=== PATIENT | female | born 1985 | race Caucasian/White ===

== ENCOUNTER 2021-12-09 11:11 | Emergency (ER) | payer SELFPAY ==
[2021-12-09 11:36] VITALS: BP 121/87; PULSE 87; RESP 16; TEMP 36.5; O2SAT 96; BMI 32.1
[2021-12-09 12:04] VITALS: BP 119/73; PULSE 85; RESP 14; O2SAT 98
--- NOTE | 2021-12-09 12:07 | ED_ITS ---
HPI - Nausea/Vomiting/Diarrhea General: Chief complaint: Nausea/Vomiting/Diarrhea Stated complaint: Nauseous Time Seen by Provider: 12/09/21 11:51 Source: patient Mode of arrival: ambulatory Limitations: no limitations History of Present Illness: 36-year-old female patient presents with complaint of nausea. History of throbbing pain in the flank bilaterally. She denies any fever sweats chills denies any shortness of breath or cough. No dysuria urgency or frequency no vomiting or diarrhea. But has been significantly nauseous. MD elicited complaint: nausea and vomiting Onset (ago): hour(s) Description of vomiting: food contents and watery Associated nausea: Yes Associated abdominal pain: Yes Location of pain: Diffuse Severity: mild Quality: cramping Exacerbating factors: eating Relieving factors: none Associated symtoms: Reports anorexia and nausea; Denies bloating, chest pain, cough, diaphoresis, decreased urine output, dizziness, dysuria, fatigue, fecal incontinence, fevers/chills, headache(s), malaise, myalgias, numbness, palpitations, rash, short of breath, syncope, tenesmus, tinnitus or weakness Review of Systems Const: Reports: change in appetite; Denies: fever(s), chills, body aches, fatigue, malaise or diaphoresis ENMT: Denies: tinnitus Card: Denies: chest pain, palpitations or syncope Resp: Denies: dyspnea, productive cough or non-productive cough GI: Reports: nausea; Denies: bloating or fecal incontinence : Denies: dysuria Skin/Breast: Denies: rash or pruritus Neuro: Denies: headache(s) or dizziness FOR[facility]LY [facility], [facility] ED PFSH: Medical History No significant medical problems Surgical History H/O: hysterectomy Physical Exam Const: GENERAL APPEARANCE: cooperative and comfortable ORIENTATION/CONSCIOUSNESS: Yes awake, Yes oriented to person, Yes oriented to place and Yes oriented to time HENMT: COMMON NORMALS: normocephalic, atraumatic and hearing grossly normal bilaterally HEAD & SCALP: normocephalic and atraumatic Neck/C-Spine: COMMON NORMALS: no JVD Resp: COMMON NORMALS: normal respiratory effort, No retractions, No use of accessory muscles and clear to auscultation bilaterally AUSCULTATION: clear to auscultation bilaterally Cardio: COMMON NORMALS: no JVD, regular rate, regular rhythm and No murmurs present (Cardio) RATE: regular rate RHYTHM: regular rhythm GI: COMMON NORMALS: Soft to palpation and No hepatosplenomegaly present AUSCULTATION: Yes normoactive bowel sounds PALPATION: Yes Soft to palpation, No Tenderness to palpation present (GI), No Guarding due to palpation present (GI) and Yes No hepatosplenomegaly present Extremity: COMMON NORMALS: normal to inspection, capillary refill normal, no clubbing, cyanosis or edema, no calf tenderness and no pedal edema Neuro: SENSORIUM/ORIENTATION: Yes oriented to person, Yes oriented to place a nd Yes oriented to time Skin: COMMON NORMALS: no rashes or lesions noted GENERAL SKIN EXAM: no rashes or lesions noted Course Vital Signs: Vital signs: Vital Signs Temperature 97.7 F 12/09/21 11:36 Pulse Rate 88 12/09/21 14:23 Respiratory Rate 16 12/09/21 14:23 Blood Pressure 119/73 12/09/21 12:04 Pulse Oximetry 98 12/09/21 14:23 MDM - Nausea/Vomiting/Diarrhea Medical Decision Making Gastroenteritis elevated LFTs. Will discharge patient home encourage follow-up with primary care fizzing worsening change symptoms return. Clear liquid diet 24 to 48 hours nausea medications as needed. Should have follow-up with primary care to recheck liver functions. Medical Records I reviewed the patient's medical records. Lab Data I reviewed the patient's lab results. : 12/09/21 12:27 12/09/21 12:55 Radiology Impressions Gallbladder Ultrasound 12/09/21 13:29 IMPRESSION: 1. Fatty infiltration of the liver. 2. Cholelithiasis and echogenic bile in the gallbladder. Laboratory Results WBC 9.3 10^3/uL (4.0-10.0) 12/09/21 12:27 RBC 4.89 10^6/uL (4.1-5.3) 12/09/21 12:27 Hgb 14.9 g/dL (11.5-15.3) 12/09/21 12:27 Hct 47.5 % (37.0-47.0) H 12/09/21 12:27 MCV 97.1 fl (81-99) 12/09/21 12:27 MCH 30.5 pg (28.0-34.0) 12/09/21 12: MCHC 31.4 g/dL (30.0-36.0) 12/09/21 12: RDW 11.9 % (12.1-15.1) L 12/09/21 12:27 Plt Count 306 10^3/cmm (130-400) 12/09/21 12: MPV 10.7 fL (7.4-10.4) H 12/09/21 12:27 Neut % (Auto) 62.1 % 12/09/21 12: Lymph % (Auto) 30.6 % 12/09/21 12: Fallon % (Auto) 6.7 % 12/09/21 12: Eos % (Auto) 0.0 % 12/09/21 12: Baso % (Auto) 0.1 % 12/09/21 12: Neut # (Auto) 5.75 10^3/uL (1.8-7.7) 12/09/21 12: Lymph # (Auto) 2.8 10^3/uL (0.8-4.8) 12/09/21 12: Fallon # (Auto) 0.6 10^3/uL (0.2-0.9) 12/09/21 12: Eos # (Auto) 0.0 10^3/uL (0.0-0.8) 12/09/21 12: Baso # (Auto) 0.0 10^3/uL (0.0-0.1) 12/09/21 12: Nucleated RBC % (auto) 0 % 12/09/21 12: Nucleated RBCs # 0.0 /100WBC 12/09/21 12:27 Sodium 131 mmol/L (136-145) L 12/09/21 12:55 Potassium 3.6 mmol/L (3.5-5.1) 12/09/21 12:55 Chloride 97 mmol/L (98-107) L 12/09/21 12:55 Carbon Dioxide 24 mmol/L (22-29) 12/09/21 12:55 Anion Gap 13.6 (5-19) 12/09/21 12:55 BUN 10 mg/dL (6-20) 12/09/21 12:55 Creatinine 0.5 mg/dL (0.5-0.9) 12/09/21 12:55 GFR Calculation 141.2 mL/min (90-130) H 12/09/21 12:55 Glucose 106 mg/dL (65-115) 12/09/21 12:55 Calculated Osmolality 271 mOsm/kg (285-295) L 12/09/21 12:55 Calcium 8.6 mg/dL (8.5-10.5) 12/09/21 12:55 Total Bilirubin 0.3 mg/dL (0.15-1.2) 12/09/21 12:55 AST 45 U/L (0-32) H 12/09/21 12:55 ALT 125 U/L (0-33) H 12/09/21 12:55 Alkaline Phosphatase 181 IU/L (35-105) H 12/09/21 12:55 Total Protein 7.9 g/dL (6.6-8.7) 12/09/21 12:55 Albumin 4.0 g/dL (3.5-5.2) 12/09/21 12:55 Globulin 3.9 g/dL (1.3-4.6) 12/09/21 12:55 Lipase 27 U/L (13-60) 12/09/21 12:55 Urine Color Yellow (Yellow) 12/09/21 12:02 Urine Appearance Clear (CLEAR) 12/09/21 12:02 Urine pH 5 (5-7) 12/09/21 12:02 Ur Specific Ringle 1.020 (1.005-1.030) 12/09/21 12:02 Urine Protein Neg (Negative) 12/09/21 12:02 Urine Glucose (UA) Norm (Normal) 12/09/21 12:02 Urine Ketones 1+ (Negative) H 12/09/21 12:02 Urine Blood Neg (Negative) 12/09/21 12:02 Urine Nitrate Negative (Negative) 12/09/21 12:02 Urine Bilirubin Neg (Negative) 12/09/21 12:02 Urine Urobilinogen Norm mg/dL (Negative) 12/09/21 12:02 Ur Leukocyte Esterase Negative (Negative) 12/09/21 12:02 Discharge Plan Discharge Patient Disposition: Home Clinical Impression: Gastroenteritis, Elevated LFTs Condition: Stable Prescriptions: New ondansetron HCl 4 mg tablet 4 mg PO Q6H PRN (Reason: nausea and vomiting) Qty: 20 0RF Discharge Orders: Discharge ED (Routine); Ordered 12/09/21 Ordered By: Crescencio Bailey Referrals: Gama Lisa MD [Primary Care Provider] - Discharge Diet: Clear Liquid Discharge Activity: Increase activity as tolerated Patient Instructions: Opioid Safety Activity Restrictions/Additional Instructions: Liquid diet for 24 to 48 hours. Follow-up with your primary care doctor within the next 1 to 2 weeks to recheck liver functions. Return if symptoms worsen. 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
[2021-12-09 12:09] LABS: Add Urine Microscopic? NO; Charge for UA Resulting for Rev
[2021-12-09] MEDS: ondansetron 2 mg/ML SDV 2 mL 4 MG IVP (12:24)
[2021-12-09] MEDS: lactated ringers 1,000 ML 999 ML IV (12:24)
[2021-12-09 12:34] LABS: Bilirubin Urine Neg (Negative); Blood Urine Neg (Negative); Glucose Urine UA Norm (Normal); Ketones Urine 1+ (Negative); Nitrate Urine Negative (Negative); Protein Urine Neg (Negative); Urine Appearance Clear (CLEAR); Urine Color Yellow (Yellow); Urobilinogen Urine Norm (Negative); pH Urine 5 (5-7)
[2021-12-09 12:35] LABS: Leukocyte Esterase Urine Negative (Negative)
[2021-12-09 12:45] LABS: Basophils % 0.1 %; Hematocrit 47.5 % (37.0-47.0); Hemoglobin 14.9 g/dL (11.5-15.3); Lymphocytes # 2.8 10^3/uL (0.8-4.8); Lymphocytes % 30.6 %; Mean Corpuscular HGB Conc 31.4 g/dL (30.0-36.0); Mean Corpuscular Hemoglobin 30.5 pg (28.0-34.0); Mean Corpuscular Volume 97.1 fl (81-99); Mean Platelet Volume 10.7 fL (7.4-10.4); Monocytes # 0.6 10^3/uL (0.2-0.9); Monocytes % 6.7 %; Neutrophils # 5.75 10^3/uL (1.8-7.7); Neutrophils % 62.1 %; Nucleated Red Blood Cells % 0 %; Platelet Count 306 10^3/cmm (130-400); Red Blood Count 4.89 10^6/uL (4.1-5.3); Red Cell Distribution Width 11.9 % (12.1-15.1); White Blood Count 9.3 10^3/uL (4.0-10.0)
[2021-12-09 13:27] LABS: Alanine Aminotransferase 125 U/L (0-33); Alkaline Phosphatase 181 IU/L (35-105); Anion Gap 13.6 (5-19); Aspartate Amino Transferase 45 U/L (0-32); Blood Urea Nitrogen 10 mg/dL (6-20); Calcium 8.6 mg/dL (8.5-10.5); Carbon Dioxide 24 mmol/L (22-29); Chloride 97 mmol/L (98-107); Creatinine Clr Calc Pharmacy 148.9763; Globulin 3.9 g/dL (1.3-4.6); Glomerular Filtration Rate 141.2 mL/min (90-130); Glucose 106 mg/dL (65-115); Lipase 27 U/L (13-60); Osmolality Calculated 271 mOsm/kg (285-295); Potassium 3.6 mmol/L (3.5-5.1); Sodium 131 mmol/L (136-145); Total Bilirubin 0.3 mg/dL (0.15-1.2); Total Protein 7.9 g/dL (6.6-8.7)
--- NOTE | 2021-12-09 13:29 | USR_ITS ---
PROCEDURE INFORMATION: Exam: US Abdomen, Limited; Right Upper Quadrant Exam date and time: 12/09/2021 1:37 PM Age: 36 years old Clinical indication: Abdominal pain; Additional info: Elevated lfts/ w n/v TECHNIQUE: Imaging protocol: US abdomen. Real time ultrasound with image documentation. Limited exam focused on the right upper quadrant. COMPARISON: US [facility] [place] Pelvic 04/02/2016 9:55 AM FINDINGS: Liver: Fatty infiltration of the liver. Gallbladder: Cholelithiasis and echogenic bile in the gallbladder. No gallbladder wall edema or pericholecystic fluid. Technologist reported negative sonographic Gonzalez sign. Common bile duct: Normal caliber of the incompletely visualized common bile duct measuring 3 mm in diameter. Pancreas: Partial obscuration of the pancreas by bowel gas. Right kidney: Normal right renal morphology. No hydronephrosis. Aorta: Normal caliber of the visualized abdominal aorta. Inferior vena cava: Unremarkable IVC. US/US gall bladder 61200 IMPRESSION: 1. Fatty infiltration of the liver. 2. Cholelithiasis and echogenic bile in the gallbladder.
[2021-12-09 14:23] VITALS: PULSE 88; RESP 16; O2SAT 98
== END 2021-12-09 14:24 | disposition home or self-care (01) ==
PROVIDERS: Emergency Provider Family Medicine; PCP Family Medicine
DX: K52.9 Noninfective gastroenteritis and colitis, unspecified (principal); R79.89 Other specified abnormal findings of blood chemistry; K80.20 Calculus of gallbladder without cholecystitis without obstruction; K76.0 Fatty (change of) liver, not elsewhere classified
CPT/HCPCS: 36415; 76705; 80053; 81003; 83690; 85025; 96361; 96374; 99283; J2405